=== PATIENT | male | born 1975 ===

== ENCOUNTER 2021-10-31 15:46 | Emergency (ER) | payer MEDICAID, OTHER ==
[~2021-10-31] VITALS: Ht 175.3 cm; Wt 93.0 kg
[2021-10-31 18:34] VITALS: BP 142/104
== END 2021-10-31 22:30 | disposition home or self-care (01) ==
LOC: ER 15:48
DX: L30.8 Other specified dermatitis (principal)
CPT/HCPCS: 73590

== ENCOUNTER 2023-10-24 00:50 | Emergency (ER) | payer MEDICAID ==
[~2023-10-24] VITALS: Ht 172.7 cm; Wt 86.5 kg
[2023-10-24] MEDS ORDERED: IBUP-1456 PO (02:36)
[2023-10-24] MEDS ORDERED: KETOROLAC TROMETH 60MG/2ML VIAL IM ONE (02:45)
[2023-10-24 02:50] VITALS: BP 132/82; PULSE 58; RESP 18; TEMP 98; O2SAT 96
== END 2023-10-24 03:10 | disposition home or self-care (01) ==
LOC: ER 00:50
DX: S63.601A Unspecified sprain of right thumb, initial encounter (principal); S63.610A Unspecified sprain of right index finger, initial encounter; Z79.1 Long term (current) use of non-steroidal anti-inflammatories (NSAID); X58.XXXA Exposure to other specified factors, initial encounter; Y93.89 Activity, other specified; Y92.89 Other specified places as the place of occurrence of the external cause; Y99.8 Other external cause status
CPT/HCPCS: 73130; 96372; 99283; J1885